=== PATIENT | female | born 1990 | race Caucasian/White ===

== ENCOUNTER → 2018-01-12 | Outpatient (CLI) | payer SELFPAY ==
[~2018-01-12] MED LIST: CIPRO500 MG PO; CIPROFLOXACIN500 MG PO; MACROBID100 M1 PO; OMNICEF300 MG PO; ORTHO TRI-CYCLE1 TA1 PO; PHENERGAN25 M1 PO; PYRIDIUM100 MG PO; PYRIDIUM200 MG PO; SUDAFED60 MG PO; VICODIN 5/500 505 MG PO; ZOFRAN ODT4 MG SL
== END | disposition home or self-care (01) ==
LOC: RESCLI 01:58
DX: F33.9 Major depressive disorder, recurrent, unspecified (principal); R87.619 Unspecified abnormal cytological findings in specimens from cervix uteri

== ENCOUNTER → 2018-11-05 | Outpatient (CLI) | payer OTHER ==
--- NOTE | ~2018-11-05 | EKG ---
[place], [place] ELECTROCARDIOGRAM REPORT NAME: EMY GREER UNIT #: [id number] ROOM: DOCTOR: KEISHA DRAFT REPORT BIRTHDATE: [birth year] [facility] Test Date: 2018-11-05 Test Time: 12:09:29 Pat Name: EMY GREER Department: Room: Gender: F [employer] Machine Operator: Erica Bhardwaj : 1990 Requested By: ANUPAM PADILLA Order Number: [id number] Reading MD: Cas Weber MD Measurements Intervals [place] Rate: 84 P: 0 TN: 61 QRS: 34 QRSD: 88 T: 20 QT: 374 QTc: 443 Interpretive Statements Sinus rhythm Short [place] interval Probable left atrial enlargement Minimal ST depression, inferior leads Baseline wander in lead(s) V4 Electronically Signed On 11-09-2018 6:27:15 PST by Cas Weber MD CM:EKGRPT:ELECTROCARDIOGRAM REPORT [id number] ANUPAM ALBERTS DRAFT REPORT ANUPAM PADILLA DO
[2018-11-05 10:54] LABS: CHOLESTEROL 191 mg/dL (<200); HDL CHOLESTEROL 70 mg/dl (40-60); LDL CHOLESTEROL 102 mg/dL (9-159); TRIGLYCERIDES 94 mg/dl (<150); TROPONIN I < 0.015 ng/ml (<0.045); VLDL CHOLESTEROL 19 mg/dL (6-40)
== END | disposition home or self-care (01) ==
LOC: LAB 09:16 → RESCLI 09:16
PROVIDERS: Internal Medicine
DX: R42 Dizziness and giddiness (principal); R11.0 Nausea; R06.02 Shortness of breath; R79.89 Other specified abnormal findings of blood chemistry; F33.9 Major depressive disorder, recurrent, unspecified; R51 Headache; R03.0 Elevated blood-pressure reading, without diagnosis of hypertension; Z88.8 Allergy status to other drugs, medicaments and biological substances; Z79.899 Other long term (current) drug therapy

== ENCOUNTER 2020-11-01 04:06 | Emergency (ER) | payer OTHER ==
[~2020-11-01] VITALS: Ht 149.8 cm; Wt 52.6 kg
[2020-11-01] MEDS ORDERED: BUPROPION HYDR150 M3 PO (04:14)
[2020-11-01 04:39] LABS: BASO # 0.1 10*3/uL (0.0-0.1); BASO % 0.3 % (0.0-1.0); EOS % 0.1 % (1.0-4.0); HEMATOCRIT 43.7 % (37.0-47.0); LYMPH # 0.7 10*3/uL (1.3-4.4); LYMPH % 4.8 % (27.0-41.0); MEAN CELL VOLUME 95.4 fl (81.0-99.0); MEAN CORPUSCULAR HGB 32.5 pg (27.0-31.0); MEAN CORPUSCULAR HGB CONC 34.1 g/dl (33.0-37.0); MEAN PLATELET VOLUME 9.5 fl (9.6-12.3); MONO # 0.9 10*3/uL (0.1-1.0); MONO % 5.7 % (3.0-9.0); NEUT # 13.4 10*3/uL (2.3-7.9); NEUT % 88.7 % (47.0-73.0); PLATELET COUNT AUTOMATED 332 10*3/uL (130-400); RED BLOOD COUNT 4.58 10*6/uL (4.10-5.10); RED CELL DISTRI WIDTH 11.8 % (0-14.5); WHITE BLOOD COUNT 15.1 10*3/uL (4.8-10.8)
[2020-11-01 05:46] LABS: ALBUMIN 4.3 gm/dl (3.1-4.5); ALKALINE PHOSPHATASE 46 U/L (45-117); BUN 18 mg/dl (7-24); CHLORIDE 109 mmol/L (98-107); CREATININE 0.77 mg/dL (0.55-1.02); LIPASE 52 U/L (73-393); POTASSIUM 3.8 mmol/L (3.5-5.1); SGOT/AST 9 IU/L (3-35); SGPT/ALT 26 U/L (12-78); SODIUM 140 mmol/L (136-145); TOTAL PROTEIN 7.6 gm/dL (6.4-8.2)
[2020-11-01 06:07] LABS: BILIRUBIN Negative (Negative); BLOOD Negative (Negative); CLARITY Clear (Clear); COLOR Yellow (Yellow); GLUCOSE Negative (Negative); KETONE 2+ (Negative); LEUKO ESTERASE Negative (Negative); NITRITE Negative (Negative); PH 6.5 (4.5-8.0); SPECIFIC GRAVITY >= 1.030 (1.001-1.030)
[2020-11-01 06:21] LABS: BACTERIA TRACE; EPITHELIAL CELLS 16-20; MUCOUS 2+; RBC 0-2 rbc/hpf (0-2); WBC 0-2 wbc/hpf (0-5)
== END 2020-11-01 06:48 | disposition home or self-care (01) ==
LOC: ED 04:06
PROVIDERS: Emergency Medicine
DX: R11.10 Vomiting, unspecified (principal); R19.7 Diarrhea, unspecified; Z79.899 Other long term (current) drug therapy